=== PATIENT | male | born 2000 | race Caucasian/White ===

== ENCOUNTER 2024-06-23 09:33 | Emergency (ER) | payer MEDICAID ==
[~2024-06-23] VITALS: Ht 175.3 cm; Wt 75.0 kg
[2024-06-23 09:38] VITALS: O2SAT 95
[2024-06-23] MEDS ORDERED: KETO10TA2 MT (10:11)
[2024-06-23] MEDS ORDERED: AMOX1TAB16 MT (10:11)
[2024-06-23 10:29] VITALS: BP 147/70; PULSE 84; RESP 16; TEMP 36.72516; O2SAT 95
== END 2024-06-23 12:42 | disposition home or self-care (01) ==
LOC: ER 09:33
DX: K08.89 Other specified disorders of teeth and supporting structures (principal)
CPT/HCPCS: 99283